=== PATIENT | female | born 1995 | race Caucasian/White ===

== ENCOUNTER → 2025-07-17 | Outpatient (CLI) | payer OTHER ==
[2025-07-17 17:39] LABS: PLATELET COUNT, AUTOMATED 272 10^3/uL (150-450)
[2025-07-17 18:33] LABS: HIV 1&2 SCREEN NEGATIVE (NEGATIVE)
[2025-07-17 18:41] LABS: HEPATITIS C VIRUS ABY INDEX < 0.02 INDEX (<0.8)
== END ==
LOC: M PLALAB 14:20
PROVIDERS: ATTEND Student in an Organized Health Care Education/Training Program
DX: Z34.80 Encounter for supervision of other normal pregnancy, unspecified trimester (principal); Z3A.00 Weeks of gestation of pregnancy not specified; Z11.3 Encounter for screening for infections with a predominantly sexual mode of transmission